=== PATIENT | male | born 1990 | race Native Hawaiian/Other Pacific Islander ===

== ENCOUNTER 2023-08-02 15:15 | Outpatient (CLI) | payer OTHER | END 2023-08-02 22:08 | disposition home or self-care (01) | LOC: MRI 15:15 | PROVIDERS: ATTEND Orthopaedic Surgery Orthopaedic Surgery of the Spine | DX: M48.02 Spinal stenosis, cervical region (principal); M54.12 Radiculopathy, cervical region; R20.2 Paresthesia of skin; G95.0 Syringomyelia and syringobulbia; M47.892 Other spondylosis, cervical region; M50.321 Other cervical disc degeneration at C4-C5 level; M50.322 Other cervical disc degeneration at C5-C6 level; M50.323 Other cervical disc degeneration at C6-C7 level; M46.02 Spinal enthesopathy, cervical region; M41.83 Other forms of scoliosis, cervicothoracic region | CPT/HCPCS: A9576 ==